=== PATIENT | female | born 1940 | race Caucasian/White ===

== ENCOUNTER 2024-01-01 11:47 | Emergency (ER) | payer MEDICARE, OTHER, SELFPAY ==
[2024-01-01 11:52] VITALS: BP 155/76
--- NOTE | 2024-01-01 12:33 | ED.GENMED ---
History of Present Illness
General
Chief Complaint: Change in Mental Status
Source: family
Time Seen by Provider: 01/01/24 12:23
Travel History
Have you had any contact with someone who has COVID-19?: No
Do you have any symptoms of coronavirus? Fever > 100 degrees, chills, cough, shortness of breath, sore throat, loss of taste or smell, muscle aches, or headache?: No
History of Present Illness
History of Present Illness:
83-year-old female brought to the [facility] by family for evaluation of increased confusion, increasing urinary incontinence and waxing and waning of left facial droop. Patient noted to have these symptoms over the past couple days. Patient has been
observed to have a left facial droop before but it seems more pronounced now. No known fever. Patient did recently have C. difficile for which was treated with metronidazole. Diarrhea seems to have abated.
Phy Exam
Physical Exam
Physical Exam:
General: Awake, Alert, Oriented X1. No acute distress.
Vitals: unremarkable
Head: Atraumatic
Eyes: Pupils equal, EOMI
Throat: Airway intact, no exudates
Neck: Trachea midline
Lungs: Clear and equal b/l
Heart: Regular rate, no murmurs
Abd: Soft, Nontender, No pulsatile mass
Neuro: Perhaps mild facial droop. No other focal weakness
Skin: Warm, dry, no rash
Extremities: pulses equal b/l, no edema
Course
Orders/Labs/Results
Orders:
Orders
01/01/24 12:32
CT Head W/o Iv Contrast Urgent
Comment:
Reason For Exam: increased confussion
Straight cath- Treatment ONCE
01/01/24 12:58
Basic Metabolic Panel Urgent
COVID-19 Antigen Urgent
Source: Nasal Swab
Complete Blood Count/With Diff Urgent
Magnesium Urgent
Influenza A+B Rapid Molecular Urgent
LIZBETH Source: Nasal Swab
Specimen Description:
01/01/24 13:19
Urinalysis Reflex To Culture Urgent
Date Specimen was Collected: 01/01/24
Time Specimen was Collected: 13:00
Urine Microscopic Reflex Cult Urgent
Abnormal Lab Results
01/01/24 01/01/24
12:58 13:19
MCHC 32.1 L g/dL
(33.0-37.0)
RDW 14.7 H %
(11.5-14.5)
MPV 11.6 H fL
(7.4-10.4)
Absolute Lymphs (auto) 0.9 L 10^3/uL
(1.2-3.4)
Absolute Monos (auto) 0.9 H 10^3/uL
(0.1-0.6)
Neutrophils % 75.5 H %
(42.2-75.2)
Lymphocytes % 11.3 L %
(20.5-51.1)
Monocytes % 11.3 H %
(1.7-9.3)
Carbon Dioxide 31 H mmol/L
(22-30)
BUN 22 H mg/dl
(7-17)
Ur Occult Blood Reflex 2+ A
(Negative)
Leukocyte Esterase Rfl Trace A
(Negative)
Urine RBC 11-15 A /HPF
(0-2)
Urine Bacteria (Reflex) Few A
(Negative)
01/01/24 12:58
01/01/24 12:58
Vital Signs
Initial and Last Documented VS:
Initial Vital Signs
Temp Pulse Resp BP Pulse Ox
97.7 F 70 16 155/76 95
01/01/24 11:52 01/01/24 11:52 01/01/24 11:52 01/01/24 11:52 01/01/24 11:52
Last Documented Vital Signs
Temp Pulse Resp BP Pulse Ox
97.7 F 63 17 137/83 97
01/01/24 11:52 01/01/24 15:30 01/01/24 15:30 01/01/24 15:00 01/01/24 15:45
*Critical Care Note
Total Time (30-74mins, 75-104mins- exclusive of procedures): Not Applicable
ED Attending Note
-
Portions of this chart may have been created with voice recognition software.� Occasional wrong word or��sound alike� substitutions may have occurred due to the inherent limitations of voice recognition software.
Discharge Plan
Departure
Patient Disposition: Home (Routine Discharge)
Date of Disposition: 01/01/24
Time of Disposition: 15:36
Patient with high blood pressure during this ER visit?: Yes
Discharge Problem:
Dementia, Parotid sialadenitis
Instructions: Altered Mental Status (DC)
Prescriptions:
No Action
atorvastatin 40 mg Tablet
40 mg PO DAILY
loperamide [Imodium] 2 mg Capsule
2 mg PO DAILYPRN PRN (Reason: diarrhea)
metoprolol succinate 50 mg Tablet Extended Release 24 Hr
50 mg PO DAILY
donepezil 10 mg Tablet
10 mg PO QPM
aspirin 81 mg Tablet,Delayed Release (Dr/Ec)
81 mg PO DAILY PRN (Reason: mild pain)
ibuprofen [Advil] 200 mg Tablet
200 mg PO DAILYPRN PRN (Reason: mild pain)
bismuth subsalicylate [Pepto-Bismol] 262 mg Tablet,Chewable
1 tab PO DAILYPRN PRN (Reason: stomach discomfort)
mirtazapine 15 mg Tablet
15 mg PO QPM
sertraline 50 mg Tablet
75 mg PO DAILY
risperidone 0.5 mg Tablet
1 mg PO HS
ramipril 10 mg Capsule
10 mg PO DAILY
Visbiome 112.5 billion cell Capsule
1 cap PO DAILY
inulin-sorbitol 2 gram Tablet,Chewable
2 tab PO TID
Lactaid
1 tab PO DAILYPRN PRN (Reason: stomach discomfort)
Referrals:
Kelvin Ren MD [Active] -
Junior Gonsalez MD [Family Provider] -
Activity Restrictions/Additional Instructions:
Fortunately or unfortunately the testing here in the emergency room does not show a clear reason for increased confusion. The swelling of the left side of Kerry's face may reflect a stone in the salivary gland duct or perhaps even infection. Lets
start with using sour candies to help increase salivary secretion. Given her recent infection with C. difficile I would hold off on antibiotics unless clearly necessary. Urinalysis was not convincing for urinary tract infection but a culture has
been sent and we will contact you if the culture is abnormal. CT scan of the brain showed age-related changes but no evidence of any acute abnormality. Please return if symptoms seem to be getting worse. Increase fluid intake might also be helpful
Interventions
Interventions:
*Risk Screen - Suicide Last Done: 01/01/24 14:02
*General Assessment Last Done: 01/01/24 13:01
*Neglect/Abuse Screening Last Done: 01/01/24 14:02
ED- Fall Risk Assessment Last Done: 01/01/24 13:58
*ED COVID-19 Vaccine History Last Done: 01/01/24 11:52
*Nursing Disposition Last Done: 01/01/24 16:03
ED- Pulmonary Assessment Last Done: 01/01/24 13:58
ED- Neurological Assessment Last Done: 01/01/24 13:58
ED- Cardiac Assessment Last Done: 01/01/24 13:58
[2024-01-01 13:00] VITALS: BMI 24.3
[2024-01-01 13:05] LABS: % Basophils 0.5 % (0-2); % Eosinophils 1.2 % (0-6); % Immature Granulocytes 0.2 % (0-0.5); % Lymphocytes 11.3 % (20.5-51.1); % Monocytes 11.3 % (1.7-9.3); % Neutrophils 75.5 % (42.2-75.2); Absolute Eosinophils 0.1 10^3/uL (0-0.7); Absolute Lymphocytes 0.9 10^3/uL (1.2-3.4); Absolute Monocytes 0.9 10^3/uL (0.1-0.6); Absolute Neutrophils 6.1 10^3/uL (1.4-6.5); Hematocrit 41.4 % (37.0-47.0); Hemoglobin 13.3 g/dL (12.0-16.0); Mean Corp Hgb Conc. 32.1 g/dL (33.0-37.0); Mean Corpuscular Hgb 27.4 pg (27.0-31.0); Mean Corpuscular Volume 85.2 fL (81.0-99.0); Mean Platelet Volume 11.6 fL (7.4-10.4); Nucleated Red Blood Cells % 0 %; Platelet Count 258 10^3/uL (130-400); Red Blood Cell Count 4.86 10^6/uL (4.20-5.40); Red Cell Dist. Width 14.7 % (11.5-14.5); White Blood Cell Count 8.1 10^3/uL (4.8-10.8)
[2024-01-01 13:23] LABS: Blood Urea Nitrogen 22 mg/dl (7-17); Calcium 9.2 mg/dl (8.4-10.2); Carbon Dioxide 31 mmol/L (22-30); Chloride 104 mmol/L (98-107); Estimated Creatinine Clearance 54 ml/min; Glucose 90 mg/dl (70-99); Magnesium 2.1 mg/dl (1.6-2.3); Sodium 138 mmol/L (135-145); eGFR > 60.00
[2024-01-01 13:39] VITALS: BP 136/93
[2024-01-01 14:02] LABS: Urine Albumin Negative (Neg - Trace); Urine Bilirubin Negative (Negative); Urine Character Clear (Clear); Urine Color Yellow; Urine Glucose Negative (Negative); Urine Ketone Negative (Negative); Urine Leukocyte Trace (Negative); Urine Nitrite Negative (Negative); Urine Occult Blood 2+ (Negative); Urine Urobilinogen Negative (Neg - 1+)
[2024-01-01 14:09] VITALS: BP 145/98
[2024-01-01 14:22] LABS: Urine Mucus Many
[2024-01-01 14:23] LABS: Urine Amorphous Seen; Urine Urothelial Cell 21-25 /LPF (FEW)
[2024-01-01 14:24] LABS: Urine Bacteria Few (Negative); Urine White Cell 0-2 /HPF (0-5)
[2024-01-01 15:00] VITALS: BP 137/83
[2024-01-01 15:20] LABS: COVID-19 Antigen Negative (Negative)
== END 2024-01-01 16:14 | disposition home or self-care (01) ==
LOC: EMR 11:47
PROVIDERS: EMERGENCY PHYSICIAN Emergency Medicine; FAMILY PHYSICIAN Internal Medicine
DX: F03.90 Unspecified dementia, unspecified severity, without behavioral disturbance, psychotic disturbance, mood disturbance, and anxiety (principal); K11.20 Sialoadenitis, unspecified
CPT/HCPCS: 99284; 70450; 80048; 81003; 81015; 83735; 85025; 87502; 87811